=== PATIENT | female | born 1995 | race Hispanic/Latino ===

== ENCOUNTER 2018-04-18 12:49 | Emergency (ER) | payer SELFPAY ==
[2018-04-18] MEDS ORDERED: HYDROcodone/Acetaminophen 5/325 mg Tablet ONE (13:46)
--- NOTE | 2018-04-18 14:37 | RAD ---
AP PELVIS: Date: 04/18/18 HISTORY: Injury. Pelvic pain. FINDINGS/IMPRESSION: No acute fracture or dislocation is seen. POS: [facility]
--- NOTE | 2018-04-18 14:57 | RAD ---
TWO VIEWS LEFT HIP: Date: 04-18-18 History: Left hip injury after falling downstairs while carrying boxes. FINDINGS: There is no evidence of fracture, dislocation, or other osseous abnormality involving the left hip. IMPRESSION: No acute osseous abnormality. POS: [facility]
== END 2018-04-18 13:55 | disposition home or self-care (01) ==
LOC: NAV ERS 12:49
DX: S70.02XA Contusion of left hip, initial encounter (principal); W19.XXXA Unspecified fall, initial encounter
CPT/HCPCS: 72170